=== PATIENT | female | born 1940 | race African-American/Black ===

== ENCOUNTER 2021-07-03 09:48 | Inpatient (IN) | payer OTHER, MEDICAID ==
[~2021-07-03] VITALS: Ht 167.6 cm; Wt 99.8 kg
[2021-07-03] MEDS ORDERED: SODIUM CHLORIDE 0.9% 1,000 ML IV ONE (10:30)
[2021-07-03] MEDS ORDERED: CEFTRIAXONE 1 G PREMIX 50 ML IV ONE (10:30)
[2021-07-03 10:44] LABS: MEAN CORPUSCULAR HEMOGLOBIN 30.9 pg (28.0-32.0); MEAN CORPUSCULAR VOLUME 95.5 fL (81.0-99.0); PLATELET 93 x1000/uL (130-400); RED BLOOD CELL COUNT 2.04 mill/uL (4.2-5.4); RED CELL DISTRIBUTION WIDTH 17.1 % (11.6-14.6)
[2021-07-03 10:47] LABS: CHLORIDE 111 mEq/L (98-107); HEMATOCRIT. 19.5 % (36.0-48.0); HEMOGLOBIN. 6.3 g/dL (12.0-16.0)
[2021-07-03 10:48] LABS: INR 1.1; PROTHROMBIN TIME 11.7 sec (9.6-11.0)
[2021-07-03 11:32] LABS: CLARITY URINE CLEAR (CLEAR); COLOR URINE YELLOW (YELLOW); KETONES URINE TRACE (NEGATIVE); LEUKOCYTE ESTERASE URINE NEGATIVE (NEGATIVE); NITRITE URINE NEGATIVE (NEGATIVE); OCCULT BLOOD URINE NEGATIVE (NEGATIVE); PROTEIN URINE 1+ (NEGATIVE); SPECIFIC GRAVITY URINE 1.018 (1.005-1.030)
[2021-07-03] MEDS ORDERED: PIPERACILLIN/TAZOBACTAM 3.375GM/50ML PREMIX IV ONE (12:00)
[2021-07-03 12:04] LABS: PLATELET ESTIMATE DECREASED
[2021-07-03] MEDS ORDERED: PIPERACILLIN/TAZ 3.375G PREMIX 50 ML IV NR (12:15)
[2021-07-03] MEDS ORDERED: CEFEPIME 2,000 MG in DEXT 5% WATER 100 ML IV SCH (12:45)
[2021-07-03] MEDS ORDERED: AZITHROMYCIN 500MG in DEXTROSE 5% WATER 250ML IV SCH (14:30)
[2021-07-03] MEDS ORDERED: AZITHROMYCIN XX SCH (14:30)
[2021-07-03] MEDS ORDERED: CEFEPIME XX SCH (14:30)
[2021-07-03] MEDS ORDERED: VANCOMYCIN XX SCH (14:30)
[2021-07-03] MEDS: VANCOMYCIN 1 G PREMIX 200 ML IV NR (14:43)
[2021-07-03] MEDS ORDERED: ONDANSETRON HCL 4MG/2ML INJ IV PRN (15:30)
[2021-07-03] MEDS ORDERED: DEXTROSE 50% WATER 50ML SYRINGE IV PRN (15:30)
[2021-07-03] MEDS ORDERED: ACETAMINOPHEN 325MG TABLET PO PRN ×2 (15:30)
[2021-07-03] MEDS ORDERED: CLONIDINE 0.1MG TABLET PO PRN (15:30)
[2021-07-03] MEDS ORDERED: DIPHENHYDRAMINE 50MG/ML VIAL IV PRN (15:30)
[2021-07-03] MEDS: BLOOD SUGAR DIAGNOSTIC STRIP TEST SCH ×2 (17:00→20:44)
[2021-07-03] MEDS: INSULIN LISPRO 100 UNITS/ML SUBCUT SCH ×2 (17:40→21:00)
[2021-07-03 18:10] VITALS: BP 155/73
[2021-07-03 20:00] VITALS: BP 148/60
[2021-07-03] MEDS: OMEPRAZOLE 20MG CAPSULE EXTENDED RELEASE PO SCH (20:58)
[2021-07-04] VITALS (8 sets, daily range): BP systolic 121–144; BP diastolic 44–66
[2021-07-04] MEDS ORDERED: CEFEPIME 2,000 MG in DEXT 5% WATER 100 ML IV SCH
[2021-07-04] MEDS ORDERED: ACAL100C PO (00:17)
[2021-07-04] MEDS: SODIUM CHLORIDE 0.9% 1,000 ML IV SCH ×2 (02:47→11:30)
[2021-07-04] MEDS: CEFEPIME 2,000 MG in DEXT 5% WATER 100 ML IV SCH ×2 (02:47→13:43)
[2021-07-04] MEDS ORDERED: VANCOMYCIN 750 MG PREMIX 150 ML IV SCH (06:00)
[2021-07-04] MEDS: INSULIN LISPRO 100 UNITS/ML SUBCUT SCH ×4 (06:00→20:14)
[2021-07-04] MEDS ORDERED: *PATIENT'S OWN MEDICATION STORAGE XX SCH (06:15)
[2021-07-04] MEDS: OMEPRAZOLE 20MG CAPSULE EXTENDED RELEASE PO SCH ×2 (06:18→20:14)
[2021-07-04] MEDS: BLOOD SUGAR DIAGNOSTIC STRIP TEST SCH ×4 (06:19→20:14)
[2021-07-04 07:35] LABS: MEAN CORPUSCULAR VOLUME 91.1 fL (81.0-99.0); MEAN PLATELET VOLUME 9.7 fl (7.4-10.4); PLATELET 75 x1000/uL (130-400); RED BLOOD CELL COUNT 2.25 mill/uL (4.2-5.4); RED CELL DISTRIBUTION WIDTH 16.3 % (11.6-14.6)
[2021-07-04 07:53] LABS: CHLORIDE 107 mEq/L (98-107)
[2021-07-04 07:58] LABS: HEMATOCRIT. 20.5 % (36.0-48.0)
[2021-07-04 08:03] LABS: CREATINE KINASE 47 IU/L (26-192)
[2021-07-04] MEDS: AZITHROMYCIN 500 MG TABLET PO SCH (09:22)
[2021-07-04 12:41] LABS: HEPATITIS B SURFACE ANTIGEN NEGATIVE
[2021-07-04 12:45] LABS: PLATELET ESTIMATE DECREASED
[2021-07-04 18:15] LABS: HEMATOCRIT. 23.9 % (36.0-48.0); HEMOGLOBIN. 8.1 g/dL (12.0-16.0); MEAN CORPUSCULAR HEMOGLOBIN 31.2 pg (28.0-32.0); MEAN CORPUSCULAR VOLUME 92.3 fL (81.0-99.0); MEAN PLATELET VOLUME 9.5 fl (7.4-10.4); PLATELET 70 x1000/uL (130-400); RED BLOOD CELL COUNT 2.59 mill/uL (4.2-5.4); RED CELL DISTRIBUTION WIDTH 15.8 % (11.6-14.6)
[2021-07-04 18:55] LABS: PLATELET ESTIMATE DECREASED
[2021-07-05] VITALS (7 sets, daily range): BP systolic 114–148; BP diastolic 46–80
[2021-07-05] MEDS: CEFEPIME 2,000 MG in DEXT 5% WATER 100 ML IV SCH ×2 (02:15→13:35)
[2021-07-05] MEDS: VANCOMYCIN 1 G PREMIX 200 ML IV NR (05:02)
[2021-07-05] MEDS: VANCOMYCIN 1 G PREMIX 200 ML IV SCH (05:03)
[2021-07-05] MEDS: SODIUM CHLORIDE 0.9% 1,000 ML IV SCH (05:03)
[2021-07-05] MEDS: INSULIN LISPRO 100 UNITS/ML SUBCUT SCH ×4 (05:40→20:05)
[2021-07-05] MEDS: BLOOD SUGAR DIAGNOSTIC STRIP TEST SCH ×4 (05:40→20:05)
[2021-07-05] MEDS: OMEPRAZOLE 20MG CAPSULE EXTENDED RELEASE PO SCH ×2 (06:49→20:05)
[2021-07-05 07:18] LABS: HEMATOCRIT 25.5 % (36.0-48.0); HEMOGLOBIN 8.7 g/dL (12.0-16.0); MEAN CORPUSCULAR HEMOGLOBIN 31.3 pg (28.0-32.0); MEAN CORPUSCULAR VOLUME 92.1 fL (81.0-99.0); PLATELET 71 x1000/uL (130-400); RED BLOOD CELL COUNT 2.77 mill/uL (4.2-5.4); RED CELL DISTRIBUTION WIDTH 15.8 % (11.6-14.6)
[2021-07-05] MEDS ORDERED: FILGRASTIM-TBO 480 MCG/0.8 ML SYRINGE SQ SCH (09:00)
[2021-07-05] MEDS: AZITHROMYCIN 500 MG TABLET PO SCH (09:36)
[2021-07-06] MEDS: CEFEPIME 2,000 MG in DEXT 5% WATER 100 ML IV SCH ×2 (01:43→13:17)
[2021-07-06] MEDS: SODIUM CHLORIDE 0.9% 1,000 ML IV SCH (01:44)
[2021-07-06 03:39] VITALS: BP 147/51
[2021-07-06] MEDS: VANCOMYCIN 1 G PREMIX 200 ML IV NR (06:02)
[2021-07-06] MEDS: BLOOD SUGAR DIAGNOSTIC STRIP TEST SCH ×2 (06:02→12:10)
[2021-07-06] MEDS: OMEPRAZOLE 20MG CAPSULE EXTENDED RELEASE PO SCH (06:02)
[2021-07-06] MEDS: VANCOMYCIN 1 G PREMIX 200 ML IV SCH (06:03)
[2021-07-06] MEDS: INSULIN LISPRO 100 UNITS/ML SUBCUT SCH ×2 (06:08→12:40)
[2021-07-06 07:03] LABS: CHLORIDE 112 mEq/L (98-107)
[2021-07-06 08:00] VITALS: BP 139/47
[2021-07-06] MEDS: AZITHROMYCIN 500 MG TABLET PO SCH (08:21)
[2021-07-06 12:00] VITALS: BP 114/47
[2021-07-06 16:00] VITALS: BP 139/55
[2021-07-06] MEDS ORDERED: FILGRASTIM-TBO 480 MCG/0.8 ML SYRINGE SQ SCH (21:00)
== END 2021-07-06 18:24 | disposition home or self-care (01) | DRG 872 ==
LOC: ER 09:48 → 8WST 12:32 → EDBEDREQSVC 12:40 → EDBEDREQ 12:40 → ENRESERV 14:50
PROVIDERS: ADMIT Internal Medicine; ATTEND Internal Medicine
PROC: 30233N1 Transfusion of Nonautologous Red Blood Cells into Peripheral Vein, Percutaneous Approach (ICD-10-PCS; principal; 2021-07-03)
DX: A41.9 Sepsis, unspecified organism (principal); C85.10 Unspecified B-cell lymphoma, unspecified site; J84.9 Interstitial pulmonary disease, unspecified; D69.6 Thrombocytopenia, unspecified; I48.91 Unspecified atrial fibrillation; D64.9 Anemia, unspecified; E11.9 Type 2 diabetes mellitus without complications; D70.9 Neutropenia, unspecified; E78.00 Pure hypercholesterolemia, unspecified; I10 Essential (primary) hypertension; E66.9 Obesity, unspecified; R74.01 Elevation of levels of liver transaminase levels; R50.81 Fever presenting with conditions classified elsewhere; I27.20 Pulmonary hypertension, unspecified; Z85.6 Personal history of leukemia; Z90.710 Acquired absence of both cervix and uterus; Z90.49 Acquired absence of other specified parts of digestive tract; Z88.0 Allergy status to penicillin; Z68.35 Body mass index [BMI] 35.0-35.9, adult; Z20.822 Contact with and (suspected) exposure to COVID-19
CPT/HCPCS: 36415; 71045; 80048; 80053; 80307; 81003; 82270; 82550; 82962; 83036; 83605; 83880; 84145; 84484; 85025; 85027; 86803; 86850; 86900; 86920; 87070; 87340; 87426; 93005; 93306; 93970; 97162; 99291; C1893; J0456; J0692; J0696; J1442; J1815; J2543; J3370; J7030; J7060; P9016

== ENCOUNTER 2021-07-25 08:56 | Emergency (ER) | payer OTHER, MEDICAID ==
[~2021-07-25] VITALS: Ht 167.6 cm; Wt 63.8 kg
[~2021-07-25 08:56] MED LIST: ACAL100C PO
[2021-07-25] MEDS ORDERED: SODIUM CHLORIDE 0.9% 1,000 ML IV ONE (09:30)
[2021-07-25 10:38] LABS: MEAN CORPUSCULAR HEMOGLOBIN 31.2 pg (28.0-32.0); MEAN CORPUSCULAR VOLUME 90.4 fL (81.0-99.0); MEAN PLATELET VOLUME 8.4 fl (7.4-10.4); PLATELET 98 x1000/uL (130-400); RED BLOOD CELL COUNT 2.14 mill/uL (4.2-5.4); RED CELL DISTRIBUTION WIDTH 16.5 % (11.6-14.6)
[2021-07-25 10:40] LABS: CHLORIDE 117 mEq/L (98-107)
[2021-07-25 10:44] LABS: INR 1.1; PARTIAL THROMBOPLASTIN TIME 23.3 sec (23.4-31.0); PROTHROMBIN TIME 12.1 sec (9.6-11.0)
[2021-07-25 10:49] LABS: HEMATOCRIT. 19.4 % (36.0-48.0); HEMOGLOBIN. 6.7 g/dL (12.0-16.0)
[2021-07-25] MEDS ORDERED: FUROSEMIDE 40MG/4ML VIAL IV ONE (11:00)
[2021-07-25] MEDS ORDERED: NITROGLYCERIN OINT 1GM/INCH UDPKT TD ONE (11:00)
[2021-07-25 11:37] LABS: PLATELET ESTIMATE DECREASED
[2021-07-25 13:18] LABS: CLARITY URINE CLEAR (CLEAR); COLOR URINE YELLOW (YELLOW); KETONES URINE NEGATIVE (NEGATIVE); LEUKOCYTE ESTERASE URINE NEGATIVE (NEGATIVE); NITRITE URINE NEGATIVE (NEGATIVE); OCCULT BLOOD URINE NEGATIVE (NEGATIVE); PROTEIN URINE NEGATIVE (NEGATIVE); SPECIFIC GRAVITY URINE 1.015 (1.005-1.030)
[2021-07-25 17:30] VITALS: BP 90/51
== END 2021-07-25 17:30 | disposition admitted as inpatient to this hospital (09) ==
LOC: ER 08:56
DX: R41.82 Altered mental status, unspecified (principal); I11.0 Hypertensive heart disease with heart failure; I50.9 Heart failure, unspecified; E78.00 Pure hypercholesterolemia, unspecified; Z20.822 Contact with and (suspected) exposure to COVID-19; Z88.0 Allergy status to penicillin
CPT/HCPCS: 36415; 70450; 71045; 80053; 81003; 83880; 84484; 85025; 85610; 85730; 86850; 86900; 86901; 86920; 87086; 87426; 93005; 96361; 96374; 99285; J1940; J7030; P9016